=== PATIENT | male | born 1935 ===

== ENCOUNTER 2021-07-29 05:18 | Day surgery (SDC) | payer OTHER ==
[~2021-07-29 05:18] MED LIST: ANAPROX PO; CIPROFLOXACIN750 MG PO; CLONAZEPAM1 MG PO; COLACE100 MG PO; COZAAR50 MG PO; DOCUSATE SODIU100 MG PO; GABAPENTIN800 MG PO; METHYLPRED4 MG/DOSE- PO; NAMENDA10 MG PO; NEURONTIN300 MG PO; NORVASC2.5 M1 PO; PAXIL10 MG/5 ML PO; PAXIL20 MG PO; PERCOCET 5-3251 EACH PO; PERCOCET 5/3251 TAB PO; PLAVIX75 MG PO; PROVASTATIN PO; TRAZODONE HCL150 MG PO; [UNRECOGNIZED DRUG - OTHER] PO
== END 2021-07-29 10:20 | disposition home or self-care (01) ==
LOC: AMB-ENDOS 05:18
PROVIDERS: ATTEND Surgery
DX: K62.89 Other specified diseases of anus and rectum (principal); Z20.822 Contact with and (suspected) exposure to COVID-19